=== PATIENT | male | born 1945 | race Caucasian/White ===

== ENCOUNTER 2018-01-04 21:43 | Emergency (ER) | payer MEDICARE, OTHER ==
[2018-01-04] MEDS ORDERED: DIPH/PERTUSS(ACELL)/TETANUS VAC/PF 0.5 ML SYR (>=10YO) IM ONE (22:51)
--- NOTE | 2018-01-05 00:27 | ER Document Report ---
ED General - General Chief Complaint: Head Injury with LOC Stated Complaint: FALL,HEAD LACERATION Time Seen by Provider: 01/04/18 22:51 Notes: Patient is a 72-year-old male with a past medical history of prostate cancer status post radiation therapy, recurrent episodes of syncope, hypertension, chronic alcoholism, and chronic tobacco abuse who presents after an episode of syncope and head trauma. Patient reports that he was sitting on the couch, drinking vodka which is his normal beverage of choice when he became lightheaded and apparently passed out striking his head on the ground. His states that she heard a thump in the living room, then her the patient immediately calling that he needed help. When she got him he was awake, alert, oriented, states he did not recall what happened or how it fallen. She does note that he has a history of recurrent "blackouts" ever since starting radiation therapy and multiple new medications for his prostate cancer. He has been evaluated on multiple prior occasions by his communications media professor and others without a definitive etiology of why he continues to do so. At time of my assessment the patient notes a dull, constant, throbbing aching pain to his right forehead where there is a 2 cm laceration. Nothing improves or worsens that pain. His tetanus is up-to-date. He denies any additional injuries. He is requesting laceration repair and discharge. TRAVEL OUTSIDE OF THE [place] IN LAST 30 DAYS: No - Related Data Allergies/Adverse Reactions: No Known Allergies Allergy (Unverified 02/02/13 02:41) Past Medical History - General Information source: Patient, Parent - Social History Smoking Status: Current Every Day Smoker Frequency of alcohol use: Heavy Drug Abuse: None Lives with: Spouse/Significant other Family History: Reviewed & Not Pertinent - Past Medical History Cardiac Medical History: Reports: Hx Coronary Artery Disease, Hx Hypertension - AMLODIPINE, TEKTURNA, CLONIDINE Denies: Hx Heart Attack Pulmonary Medical History: Reports: Hx Pneumonia - in the Denies: Hx Asthma Neurological Medical History: Denies: Hx Cerebrovascular Accident, Hx Seizures GI Medical History: Denies: Hx Hepatitis, Hx Hiatal Hernia, Hx Ulcer Traumatic Medical History: Reports: Hx Fractures - hip Infectious Medical History: Denies: Hx Hepatitis Past Surgical History: Reports: Hx Orthopedic Surgery. Denies: Hx Open Heart Surgery, Hx Pacemaker - Immunizations Hx Diphtheria, Pertussis, Tetanus Vaccination: Yes Hx Pneumococcal Vaccination: 02/02/13 Review of Systems - Review of Systems Notes: Constitutional: Negative for fever. Eyes: Negative for visual changes. ENT: Negative for facial injury Cardiovascular: Negative for chest injury. Respiratory: Negative for shortness of breath. Gastrointestinal: Negative for abdominal injury. Genitourinary: Negative for genital injury Musculoskeletal: Negative for back injury. Skin: Positive for laceration/abrasions. Neurological: Positive for head injury. Physical Exam - Vital signs Vitals: Temp Pulse Resp BP Pulse Ox 97.5 F 60 18 114/62 99 01/04/18 21:50 01/04/18 21:50 01/04/18 21:50 01/04/18 21:50 01/04/18 21:50 Interpretation: Normal Notes: PHYSICAL EXAMINATION: GENERAL: Well-appearing, no acute distress. HEAD: Atraumatic, normocephalic. EYES: Pupils equal round and reactive to light, extraocular movements intact, sclera anicteric, conjunctiva are normal. ENT: nares patent, no oral pharyngeal trauma. No hemotympanum, no Joy's sign , no raccoon eyes. NECK: No midline cervical spine tenderness. Patient able to move their head to 45 bilaterally without any discomfort. LUNGS: Breath sounds clear to auscultation bilaterally and equal. No wheezes rales or rhonchi. HEART: Regular rate and rhythm without murmurs. CHEST WALL: No ecchymosis over the chest wall. ABDOMEN: Soft, nontender, normoactive bowel sounds. No guarding, no rebound. No abdominal bruising EXTREMITIES: Normal range of motion, no pitting or edema. No long bone deformities. BACK: No midline spinal tenderness, step-offs, or deformities. NEUROLOGICAL: Face symmetric. Tongue protrudes midline. Extraocular motions intact. Pupils are 2 mm and equally reactive. Normal speech, normal gait. 5 out of 5 strength in both the distal and proximal upper and lower extremities bilaterally. Sensation is grossly intact throughout. Finger to nose testing normal. Pronator drift normal. PSYCH: Normal mood, normal affect. SKIN: Warm, Dry, normal turgor, 2 cm laceration above the right eyebrow Course - Re-evaluation Re-evalutation: 01/05/18 00:24 Patient presents with a syncopal episode in which he struck his forehead sustaining a 2 cm laceration above his right medial eyebrow. Patient's tetanus shot is really up-to-date. At time of assessment he has no focal neurologic deficits, no vomiting no confusion, does not take any form of anticoagulation. He denies any headache or neck pain. He denies any injury to any other location. His EKG is unremarkable. I have recommended that we proceed with lab work including cardiac markers, IV placement for IV fluids as patient is clinically dehydrated as well as CT of the head and cervical spine as he is unable to clinically cleared by standard criteria due to his age. However, patient declines these interventions stating the only thing he wants to have his laceration repaired and they would like to go home. He states that he has had multiple similar episodes where he passes out like this, they have been evaluated by his communications media professor, and he has not had any known cause of them. He states that he does not want any further evaluation beyond what has already been completed. He verbalizes and understands that we could be missing a life- threatening diagnosis such as a dysrhythmia, ACS, intracranial bleed, or a critical cervical spine injury. He understands that the images and labs would help to clarify the possibility of these diagnoses. He understands that should I missed 1 of these diagnoses due to lack of workup, he could have permanent disability, paralysis, or even . Although patient is a chronic alcoholic, he is not clinically intoxicated. His at the bedside is present for the entirety of this conversation and agrees. His laceration has been repaired with Dermabond without difficulty. At this time will discharge with return precautions and follow-up recommendations. Verbal discharge instructions given a the bedside and opportunity for questions given. Medication warnings reviewed. Patient is in agreement with this plan and has verbalized understanding of return precautions and the need for primary care follow-up in the next 24-72 hours. - Vital Signs Vital signs: Temp Pulse Resp BP Pulse Ox 97.4 F 64 16 118/65 100 01/05/18 00:43 01/05/18 00:43 01/05/18 00:43 01/05/18 00:43 01/05/18 00:43 - EKG Interpretation by Me Additional EKG results interpreted by me: 01/05/18 01:05 Sinus bradycardia. Rate 58. No ST elevations or depressions. Intermittent PVCs. QTC is 448. Procedures - Laceration/Wound Repair Right Face Wound length (cm): 2 Wound's Depth, Shape: Superficial, Contused tissue Laceration pre-procedure: Sterile PPE donned Wound explored: Clean Irrigated w/ Saline (mLs): 300 Wound Debrided: Minimal Wound Repaired With: Dermabond Discharge - Discharge Clinical Impression: Syncope Qualifiers: Syncope type: unspecified Qualified Code(s): R55 - Syncope and collapse Forehead laceration Qualifiers: Encounter type: initial encounter Qualified Code(s): S01.81XA - Laceration without foreign body of other part of head, initial encounter Head trauma Qualifiers: Encounter type: initial encounter Qualified Code(s): S09.90XA - Unspecified injury of head, initial encounter Condition: Good Disposition: HOME, SELF-CARE Additional Instructions: The wound has been closed with glue. Please do not pick at the at the wound. Do not cover it with any kind of antibiotic ointment as this can cause the glue to loosen. Return immediately if you develop spreading redness around the wound , pus from the wound, worsening pain, or a fever of >100.4. Keep the area clean and dry. You were seen today after an episode of passing out. Your EKG here is normal. You have declined further laboratories to help clarify the cause of your syncope. Please drink plenty of fluids over the next several days. Return to emergency department if you have any further episodes of syncope, headache, weakness, numbness, chest pain, or shortness of breath. Please follow up closely with your primary care physician.
[2018-01-05 00:48] VITALS: BP 118/65
--- NOTE | 2018-01-05 07:52 | EKG REPORT ---
SEVERITY:- ABNORMAL ECG - SINUS RHYTHM MULTIPLE VENTRICULAR PREMATURE COMPLEXES : Confirmed by: Shree Tejada MD 05-Jan-2018 07:51:16
== END 2018-01-05 00:55 | disposition home or self-care (01) ==
LOC: ER 21:43
DX: R55 Syncope and collapse (principal); S01.01XA Laceration without foreign body of scalp, initial encounter; W08.XXXA Fall from other furniture, initial encounter; Y93.89 Activity, other specified; Y92.008 Other place in unspecified non-institutional (private) residence as the place of occurrence of the external cause; E86.0 Dehydration; I10 Essential (primary) hypertension; I25.10 Atherosclerotic heart disease of native coronary artery without angina pectoris; F17.200 Nicotine dependence, unspecified, uncomplicated; F10.20 Alcohol dependence, uncomplicated; Z85.46 Personal history of malignant neoplasm of prostate; Z92.3 Personal history of irradiation
CPT/HCPCS: 93005; 93010; 99284

== ENCOUNTER 2019-03-16 01:11 | Emergency (ER) | payer MEDICARE, OTHER ==
--- NOTE | 2019-03-16 01:26 | ER Document Report ---
ED Fall - General Stated Complaint: ARM PAIN Time Seen by Provider: 03/16/19 01:17 Primary Care Provider: MAYITO MESA MD [ACTIVE STAFF] - Follow up in 3-5 days Notes: Patient is a 73-year-old male that comes by EMS from home for chief complaint of fall on the left shoulder. He states that he lost his balance and tripped on the last step, landed on the ground, landed on his left shoulder/arm area with his arm tucked in close to his body. He denies shortness of breath, rib pain, head injury, neck pain, back pain, loss of consciousness, vomiting, or any other complaints. He also denies hip pain. He is not on a blood thinner but he was drinking alcohol tonight. TRAVEL OUTSIDE OF THE [place] IN LAST 30 DAYS: No - Related data Allergies/Adverse Reactions: No Known Allergies Allergy (Unverified 02/02/13 02:41) Past Medical History - General Information source: Patient - Social History Smoking Status: Current Every Day Smoker Smoking Education Provided: Yes - <3 min Frequency of alcohol use: Heavy Drug Abuse: None Lives with: Family Family History: Reviewed & Not Pertinent - Past Medical History Cardiac Medical History: Reports: Hx Coronary Artery Disease, Hx Hypertension - AMLODIPINE, TEKTURNA, CLONIDINE Denies: Hx Heart Attack Pulmonary Medical History: Reports: Hx Pneumonia - in the Denies: Hx Asthma Neurological Medical History: Denies: Hx Cerebrovascular Accident, Hx Seizures Renal/ Medical History: Denies: Hx Peritoneal Dialysis GI Medical History: Denies: Hx Hepatitis, Hx Hiatal Hernia, Hx Ulcer Traumatic Medical History: Reports: Hx Fractures - hip Infectious Medical History: Denies: Hx Hepatitis Past Surgical History: Reports: Hx Orthopedic Surgery. Denies: Hx Open Heart Surgery, Hx Pacemaker - Immunizations Hx Diphtheria, Pertussis, Tetanus Vaccination: Yes Hx Pneumococcal Vaccination: 02/02/13 Review of Systems - Review of Systems Constitutional: No symptoms reported EENT: No symptoms reported Cardiovascular: No symptoms reported Respiratory: No symptoms reported Gastrointestinal: No symptoms reported Genitourinary: No symptoms reported Male Genitourinary: No symptoms reported Musculoskeletal: See HPI Skin: No symptoms reported Hematologic/Lymphatic: No symptoms reported Neurological/Psychological: No symptoms reported Physical Exam - Vital signs Vitals: Temp Pulse Resp BP Pulse Ox 97.5 F 57 L 16 127/56 H 94 03/16/19 01:25 03/16/19 01:25 03/16/19 01:25 03/16/19 01:25 03/16/19 01:25 - Notes Notes: GENERAL: Alert, interacts well. No acute distress. HEAD: Normocephalic, atraumatic. EYES: Pupils equal, round, and reactive to light. Extraocular movements intact. ENT: Oral mucosa moist, tongue midline. Oropharynx unremarkable. Airway patent. Nares patent, no nasal septal hematoma, TM's intact. NECK: Full range of motion. Supple. Trachea midline. LUNGS: Clear to auscultation bilaterally, no wheezes, rales, or rhonchi. No respiratory distress. HEART: Regular rate and rhythm. No murmur ABDOMEN: Soft, non-tender. Non-distended. Bowel sounds present in all 4 quadrants. GENITOURINARY: Deferred EXTREMITIES: Patient cradling left arm close to his body. Elbow, forearm, wrist, hand exam unremarkable, normal strength, normal distal neurovascular exam. Patient is very tender towards the proximal humerus and humeral head, does not appear to be dislocated, too painful to move with any significant range of motion. Clavicle unremarkable, extremity exam is otherwise unremarkable. BACK: no cervical, thoracic, lumbar midline tenderness. No saddle anesthesia, normal distal neurovascular exam. NEUROLOGICAL: Alert and oriented x3. Normal speech. GCS of 15. Cranial nerves II through XII grossly intact. PSYCH: Normal affect, normal mood. SKIN: Warm, dry, normal turgor. No rashes or lesions noted. Course - Re-evaluation Re-evalutation: Patient reportedly was drinking alcohol, at bedside now, states he drinks chronically, patient is clinically sober, does not slur his words, is alert, oriented, gives excellent details and is cooperative. He does not have any signs of trauma to his head, neck, back, chest, however he does have a very tender left humerus area. There does not appear to be any other injury. Patient emphatically denies head injury. As result no CAT scan of the head or neck was performed. X-ray does confirm left humeral fracture with impaction of the head of the humerus. Patient has normal distal neurovascular exam. No other signs of trauma. I discussed with and patient details. Patient will follow-up with orthopedics, he will be placed in a sling, he will be provided with pain medicine, discussed the dangers of combining narcotics with alcohol as this could be lethal, they state understanding of precautions and plan. Discussed return precautions. Discussed with Dr. Oliver. Patient states understanding and agreement with plan. - Vital Signs Vital signs: Temp Pulse Resp BP Pulse Ox 97.3 F 65 16 121/67 96 03/16/19 03:00 03/16/19 03:00 03/16/19 01:25 03/16/19 03:00 03/16/19 03:00 Procedures - Immobilization Left arm Pre-Proc Neuro Vasc Exam: Normal Immobilizer type: Sling Performed by: PCT Post-Proc Neuro Vasc Exam: Normal Alignment checked and good: Yes Discharge - Discharge Clinical Impression: Fall Qualifiers: Encounter type: initial encounter Qualified Code(s): W19.XXXA - Unspecified fall, initial encounter Fracture of humeral head, left, closed Qualifiers: Encounter type: initial encounter Qualified Code(s): S42.292A - Other displaced fracture of upper end of left humerus, initial encounter for closed fracture Condition: Stable Disposition: HOME, SELF-CARE Additional Instructions: You have a fracture of the head of the humerus (the bone where your arm attaches to your shoulder joint). Wear the sling, take the pain medication if needed, I recommend the Colace stool softener while taking the pain medication to avoid constipation. Call tomorrow to set up your appointment with orthopedics for close follow-up and additional management. Return if you worsen including severe swelling, severe worsening pain, numbness, or any other concerning symptoms. Prescriptions: Docusate Sodium [Colace 100 mg Capsule] 100 mg PO ASDIR PRN #30 capsule PRN Reason: Oxycodone HCl/Acetaminophen [Percocet 5-325 mg Tablet] 1 - 2 tab PO Q4H PRN #15 tablet PRN Reason: Referrals: MAYITO MESA MD [ACTIVE STAFF] - Follow up in 3-5 days
[2019-03-16] MEDS ORDERED: OXYCODONE-ACETAMINOPHEN 5-325 MG TABLET PO ONE (01:37)
[2019-03-16] MEDS ORDERED: ONDANSETRON 4 MG TAB.RAPDIS PO ONE (01:37)
--- NOTE | 2019-03-16 02:14 | RADIOLOGY REPORT (SQ) ---
EXAM DESCRIPTION: XR LEFT SHOULDER 2 OR MORE VIEWS COMPLETED DATE/TME: 03/16/2019 01:24 CLINICAL HISTORY: 73 years, Male, fall; landed on shoulder; humerus pain COMPARISON: None. NUMBER OF VIEWS: TECHNIQUE: LIMITATIONS: None. FINDINGS: There is an impacted fracture of the humeral neck. This may be an old fracture, however, acute fracture superimposed on old fracture cannot be excluded. Mineralization of bone appears normal. IMPRESSION: Impacted fracture of the humeral neck of uncertain age. CT of the left shoulder would be helpful for further evaluation, if clinically warranted. copyright 2010 [employer]- All Rights Reserved
[2019-03-16] MEDS ORDERED: HYDROCODONE/ACETAMINOPHEN 5-325 MG (6 TAB/ER DISP) PO PRN (02:35)
[2019-03-16] MEDS ORDERED: ONDANSETRON ODT 4 MG TAB (6 TAB/ER DISP) PO PRN (02:36)
[2019-03-16 04:20] VITALS: BP 121/67
== END 2019-03-16 03:05 | disposition home or self-care (01) ==
LOC: ER 01:11
DX: S42.292A Other displaced fracture of upper end of left humerus, initial encounter for closed fracture (principal); W10.8XXA Fall (on) (from) other stairs and steps, initial encounter; F17.200 Nicotine dependence, unspecified, uncomplicated
CPT/HCPCS: 99283; 73030; A9270 ×4; S0119

== ENCOUNTER 2019-03-24 12:57 | Day surgery (SDC) | payer MEDICARE, OTHER ==
[~2019-03-24 12:57] MED LIST: BUPIVACAINE HCL 0.5 % INJ/PF 30 ML SDV ONE; CEFAZOLIN 2 GM/D5W RTU 2 GM/50 ML RTUPB IV PRN; DEXAMETHASONE SOD PHOSPHATE INJ 4 MG/1 ML VIAL ONE; GLYCOPYRROLATE 1 MG/5 ML SYRINGE ONE; KETOROLAC TROMETHAMINE 60 MG/2 ML SDV ONE; LIDOCAINE 2% INJ-PF (20 MG/ML) 2 ML AMPUL ONE; ONDANSETRON HCL INJ/PF 4 MG/2 ML SDV ONE; SUCCINYLCHOLINE CHLORIDE INJ 200 MG/10 ML VIAL ONE
--- NOTE | 2019-03-24 13:59 | RADIOLOGY REPORT (SQ) ---
EXAM DESCRIPTION: CHEST SINGLE VIEW COMPLETED DATE/TIME: 03/24/2019 1:48 pm REASON FOR STUDY: pre-op evaluation Z79.899 OTHER SKILLED NURSING (CURRENT) DRUG THERAPY COMPARISON: 02/02/2013 NUMBER OF VIEWS: One view. TECHNIQUE: Single frontal radiographic image of the chest acquired. LIMITATIONS: None. FINDINGS: LUNGS AND PLEURA: Lung wesley stable in appearance with residual airspace disease in the l eft midlung field most likely scar. There is hyperexpansion. MEDIASTINUM AND HILAR STRUCTURES: Stable in appearance. HEART AND VASCULAR STRUCTURES: Normal in size. No failure. BONES: No acute findings. OTHER: No other significant finding. IMPRESSION: Stable chest. No acute findings. Scarring in the left midlung field. TECHNICAL DOCUMENTATION: JOB ID: [id number] [employer]- All Rights Reserved Reading location - IP/workstation name: [email or web address]
[2019-03-24 14:25] LABS: HEMATOCRIT 33.7 % (37.9-51.0); HEMOGLOBIN 11.7 g/dL (13.5-17.0); MEAN CORPUSCULAR HEMOGLOBIN 35.4 pg (27.0-33.4); MEAN CORPUSCULAR HGB CONC 34.7 g/dL (32.0-36.0); MEAN CORPUSCULAR VOLUME 102 fl (80-97); PLATELET COUNT 366 10^3/uL (150-450); RED CELL DISTRIBUTION WIDTH 14.2 % (11.5-14.0); WHITE BLOOD COUNT 7.6 10^3/uL (4.0-10.5)
[2019-03-24 14:27] LABS: APPEARANCE,URINE CLEAR; BILIRUBIN,URINE NEGATIVE (NEGATIVE); COLOR,URINE YELLOW; GLUCOSE, URINE NEGATIVE (NEGATIVE); KETONES,URINE NEGATIVE (NEGATIVE); LEUKOCYTE ESTERASE,URINE NEGATIVE (NEGATIVE); NITRITE,URINE NEGATIVE (NEGATIVE); PROTEIN,URINE NEGATIVE (NEGATIVE); URINE SPECIFIC GRAVITY 1.017; UROBILINOGEN,URINE NEGATIVE mg/dL (<2.0)
[2019-03-24] MEDS ORDERED: ALBUTEROL SULFATE 0.083% NEB 2.5 MG/3 ML AMPUL NEB ONE (14:32)
[2019-03-24 14:33] LABS: INTERNATIONAL RATION (INR) 0.91; PROTHROMBIN TIME 12.7 SEC (11.4-15.4)
[2019-03-24 14:34] LABS: PARTIAL THROMBOPLASTIN TIME 23.9 SEC (23.5-35.8)
[2019-03-24 14:49] LABS: ALANINE AMINOTRANSFERASE 35 U/L (21-72); ALBUMIN 3.6 g/dL (3.5-5.0); ALKALINE PHOSPHATASE 77 U/L (38-126); ANION GAP 7 (5-19); ASPARTATE AMINO TRANSFERASE 26 U/L (17-59); BILIRUBIN,DIRECT 0.3 mg/dL (0.0-0.4); BILIRUBIN,TOTAL 0.8 mg/dL (0.2-1.3); BLOOD UREA NITROGEN 27 mg/dL (7-20); CALCIUM 9.9 mg/dL (8.4-10.2); CARBON DIOXIDE 28 mmol/L (22-30); CHLORIDE 102 mmol/L (98-107); GLUCOSE 106 mg/dL (75-110); POTASSIUM 5.3 mmol/L (3.6-5.0); SODIUM 137.1 mmol/L (137-145); TOTAL PROTEIN 6.4 g/dL (6.3-8.2)
[2019-03-24] MEDS ORDERED: MIDAZOLAM 2 MG/2 ML INJ ONE (14:53)
[2019-03-24] MEDS ORDERED: DEXMEDETOMIDINE INJ 80 MCG/20 ML VIAL IV ONE (14:53)
[2019-03-24] MEDS ORDERED: FENTANYL CITRATE INJ/PF 250 MCG/5 ML AMPULE ONE (14:53)
[2019-03-24] MEDS ORDERED: EPHEDRINE SULFATE INJ 50 MG/1 ML AMPULE ONE (14:53)
[2019-03-24] MEDS ORDERED: ACETAMINOPHEN 1,000 MG/100 ML RTUPB IV ONE (14:54)
[2019-03-24] MEDS ORDERED: PROPOFOL INJ 200 MG/20 ML VIAL IV ONE (14:54)
[2019-03-24 15:09] LABS: ERYTHROCYTE SEDIMENTATION RATE 67 mm/hr (0-20)
[2019-03-24] MEDS ORDERED: DIPHENHYDRAMINE HCL 50 MG/ML VIAL IV PRN (17:11)
[2019-03-24] MEDS ORDERED: PROMETHAZINE HCL INJ 25 MG/1 ML VIAL IV PRN ×2 (17:11)
[2019-03-24] MEDS ORDERED: MORPHINE SULFATE 10 MG/ML INJ IV PRN ×2 (17:11→18:54)
[2019-03-24] MEDS ORDERED: FENTANYL CITRATE INJ/PF 100 MCG/2 ML AMPUL IV PRN ×3 (17:11)
[2019-03-24] MEDS ORDERED: MEPERIDINE HCL/PF INJ 25 MG/1 ML DISP.SYRIN IV PRN (17:11)
[2019-03-24] MEDS ORDERED: ONDANSETRON HCL INJ/PF 4 MG/2 ML SDV IV PRN (17:11)
[2019-03-24] MEDS ORDERED: ONDANSETRON HCL INJ/PF 4 MG/2 ML SDV ONE (18:54)
[2019-03-24] MEDS ORDERED: HYDROCODONE/ACETAMINOPHEN 5-325 MG TABLET PO PRN (18:54)
--- NOTE | 2019-03-24 18:54 | Discharge Summary ---
Discharge Summary (SDC) - Discharge Final Diagnosis: Left proximal humerus fracture now she is good to Date of Surgery: 03/24/19 Discharge Date: 03/24/19 Condition: Good Treatment or Instructions: Schedule Follow Up w/ Dr. Kulwant Berry @ [facility] for Surgery to be seen in 10-14 days or as scheduled [place]: [place]: [place]: May remove dressing on postop day #3, keep incision covered and dry. Cryocuff to shoulder May begin wrist and elbow range of motion 4x per day or as tolerated. Keep splint intact. May remove sling for hygiene purposes otherwise continue it at all times. Stool softener of choice when on pain medication. Prescriptions: Hydrocodone/Acetaminophen [[place] 7.5-325 mg Tablet] 1 tab PO Q6 PRN #25 tablet PRN Reason: Discharge Diet: As Tolerated Respiratory Treatments at Home: Deep Breathing/Coughing, Incentive Spirometer Discharge Activity: No Lifting Over 10 Pounds, No Lifting/Push/Pulling Report the Following to Your Physician Immediately: Fever over 101 Degrees, Unusual Bleeding, Redness, Swelling, Warmth
--- NOTE | 2019-03-24 18:54 | Operative Report ---
Operative Report DATE OF SURGERY: 03/24/19 PREOPERATIVE DIAGNOSIS: Left proximal humerus fracture. Left ring finger proxi mal phalanx fracture POSTOPERATIVE DIAGNOSIS: Same OPERATION: Open reduction to fixation with placement of intramedullary nail left proximal humerus fracture. Closed reduction with splinting left ring finger proximal phalanx fracture SURGEON: MUNIRA KUHN ANESTHESIA: GA COMPLICATIONS: None ESTIMATED BLOOD LOSS: 150cc PROCEDURE: Indication for above procedure: 73-year-old male who sustained a fall onto his left upper extremity. Patient was brought to emergency room where x-rays demonstrated proximal humerus fracture with concomitant ring finger proximal phalanx fracture at that point decision was made to proceed with nonoperative treatment however upon follow-up repeat radiographs demonstrate worsening alignment. Thus once again discussed operative versus nonoperative intervention patient was deemed medically cleared from primary care physician and negative restorer and thus decision was made to proceed with operative treatment. Procedure In Detail: Patient was seen and evaluated in the preoperative holding area. The LEFT upper extremity was initialized and marked. Patient received 2g of Ancef IV for bacterial prophylaxis. Patient was taken back to the operative room where transferred to the operative table and placed under general anesthesia. Once they were adequately anesthetized patient placed in the beachchair position. Cervical spine was placed in neutral position all bony prominences were padded including nonoperative upper extremity and bilateral lower extremity. A surgical team debriefing was performed ensuring all instrumentation was available, the surgical procedure was discussed with possible concerns reviewed. The upper extremity was prepped with ChloraPrep draped in a sterile fashion. A timeout was done identifying correct patient, procedure and extremity everyone in attendance agree with this and verbalized no concerns. Longitudinal skin incision was made laterally just proximal to the acromion and extended just short of 5 cm to avoid the axillary nerve. Blunt dissection was performed and the deltoid was split underlying subacromial bursitis was identified and bursectomy was performed to expose the rotator cuff. Under C-arm fluoroscopy the starting point for the Brit proximal humeral nail was determined and a small 7 mm rolly was made within the rotator cuff centered midline between anterior and posterior and just lateral to the transition between the tuberosity and articular surface. This was then extended distally and the opening reamer was utilized. Guidewire was then placed through the proximal humerus and the distal fragment was manipulated until the guidewire was passed safely into the shaft. C-arm fluoroscopy was then obtained an additional K wire was placed into the humeral head to act as a joystick and reduce the fracture in a near anatomic position. Once this was determined the proximal humeral Brit nail was placed while maintaining acceptable reduction of the 2 part fracture. Once passed to the appropriate level K wire was placed to the top of the nail to ensure adequate placement. The lateral to medial screw was then placed and drilled to but not through the articular surface. A second screw was then placed with a washer. Through the aiming arm trocar was then advanced to the skin distally skin incision was made and blunt dissection was performed down to the humeral shaft and trocar advanced. The near 4 cortices were drilled and the appropriate sized screw was placed to the static hole. C arm fluoroscopy was then obtained which confirmed acceptable reduction of the proximal humerus on AP and lateral projection. Additional fixation was then obtained proximally with an additional 2 screws drilling to but not through the far articular surface and washers were also placed to provide further fixation. The distal aspect of the nail was then secured with a bicortical screw through the dynamic hole. Final C-arm fluoroscopy was then obtained which demonstrated sabianism of alignment with live fluoroscopy there is no evidence of screw penetration into the articular surface. Wound was copiously irrigated with normal saline. Defect within the rotator cuff was closed with #2 FiberWire suture. Deltoid fascia was closed with interrupted 0 Vicryl suture. Subcutaneous tissues were closed with 2-0 Vicryl suture. Skin was closed with jorge a. 30 cc of 0.5% bupivacaine without epinephrine was injected for postoperative pain control. Acticoat and OpSite placed. The ring finger proximal phalanx was then closed reduced under fluoroscopy restoring radial/ulnar alignment and volar/dorsal alignment. No evidence of shortening or angulation. No evidence of malrotation after reduction completed. Patient was then placed in the ulnar gutter splint in the intrinsic plus position once splint set final C-arm was obtained demonstrating no evidence of displacement acceptable alignment of the ring finger proximal phalanx extra- articular fracture. Sponge counts, instrument counts, needle counts were correct. Patient was then awoken from anesthesia. Transferred from the operating room table to the operating room stretcher. There was no intraoperative complications patient tolerated procedure well stable to PACU. Postop plan: Patient followed the office in 2 weeks we will obtain radiographs of the left hand and left shoulder. In the meantime patient will begin elbow range of motion. We will continue sling at all times excluding hygiene purposes.
[2019-03-24] MEDS: FENTANYL CITRATE INJ/PF 100 MCG/2 ML AMPUL ONE ×2 (19:07→19:12)
[2019-03-24] MEDS ORDERED: LIDOCAINE 2% INJ (20 MG/ML) 20 ML MDV ONE (19:44)
[2019-03-24] MEDS ORDERED: ROPIVACAINE HCL 0.5% INJ/PF (5 MG/1 ML) 30 ML SDV ONE (19:45)
[2019-03-24] MEDS ORDERED: LIDOCAINE 1%/EPINEPHRINE INJ 20 ML VIAL ONE (19:45)
[2019-03-24 22:13] VITALS: BP 117/69
--- NOTE | 2019-03-25 08:45 | RADIOLOGY REPORT (SQ) ---
EXAM DESCRIPTION: FINGER LEFT COMPLETED DATE/TIME: 03/24/2019 7:18 pm REASON FOR STUDY: CLOSED REDUCTION Z79.899 OTHER HALFWAY (CURRENT) DRUG THERAPY Z79.01 HALFWAY (CURRENT) USE OF ANTICOAGULANTS COMPARISON: None. FLUOROSCOPY TIME: 0.2 minutes Spot images saved to PACS. TECHNIQUE: Intra-operative images acquired during surgical procedure to evaluate progress. NUMBER OF IMAGES: 4 LIMITATIONS: None. FINDINGS: Fluoroscopy was provided for intraoperative procedure. Please refer to the operative repo rt for further discussion. IMPRESSION: IMAGE(S) OBTAINED DURING PROCEDURE. COMMENT: Quality ID [id number]: Final reports for procedures using fluoroscopy that document radiation exp osure indices, or exposure time and number of fluorographic images (if radiation exposure indices are not available) Please consult full operative report of the attending physician for description of the procedure. TECHNICAL DOCUMENTATION: JOB ID: [id number] [employer]- All Rights Reserved Reading location - IP/workstation name: [email or web address]
--- NOTE | 2019-03-25 08:46 | RADIOLOGY REPORT (SQ) ---
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 IMPRESSION: Please see combined report for performance of procedure and radiologic supervision and i nterpretation. Reading location - IP/workstation name: [email or web address]
--- NOTE | 2019-03-25 08:46 | RADIOLOGY REPORT (SQ) ---
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 IMPRESSION: Please see combined report for performance of procedure and radiologic supervision and i nterpretation. Reading location - IP/workstation name: [email or web address]
--- NOTE | 2019-03-25 08:46 | RADIOLOGY REPORT (SQ) ---
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 FLUOROSCOPY TIME: 2.2 minutes Spot images saved to PACS. TECHNIQUE: Intra-operative images acquired during surgical procedure to evaluate progress. NUMBER OF IMAGES: 9 LIMITATIONS: None. FINDINGS: Fluoroscopy was provided for intraoperative procedure. Please refer to the operative repo rt for further discussion. IMPRESSION: IMAGE(S) OBTAINED DURING PROCEDURE. COMMENT: Quality ID [id number]: Final reports for procedures using fluoroscopy that document radiation exp osure indices, or exposure time and number of fluorographic images (if radiation exposure indices are not available) Please consult full operative report of the attending physician for description of the procedure. TECHNICAL DOCUMENTATION: JOB ID: [id number] [employer]- All Rights Reserved Reading location - IP/workstation name: [email or web address]
--- NOTE | 2019-03-25 10:36 | EKG REPORT ---
SEVERITY:- ABNORMAL ECG - PACEMAKER SPIKES OR ARTIFACTS SINUS RHYTHM : Confirmed by: Doe Rodgers 25-Mar-2019 10:35:52
== END 2019-03-24 22:10 | disposition home or self-care (01) ==
LOC: OROUT 12:57
PROVIDERS: ATTEND Orthopaedic Surgery
DX: S42.292A Other displaced fracture of upper end of left humerus, initial encounter for closed fracture (principal); S62.615A Displaced fracture of proximal phalanx of left ring finger, initial encounter for closed fracture; S62.515A Nondisplaced fracture of proximal phalanx of left thumb, initial encounter for closed fracture; W10.9XXA Fall (on) (from) unspecified stairs and steps, initial encounter; I25.9 Chronic ischemic heart disease, unspecified; I10 Essential (primary) hypertension; F17.210 Nicotine dependence, cigarettes, uncomplicated; Z79.899 Other long term (current) drug therapy; Z79.01 Long term (current) use of anticoagulants; Z85.46 Personal history of malignant neoplasm of prostate
CPT/HCPCS: 23615; 26725; 36415; 85027; 85652; 85610; 85730; 80053; 81001; 71045; 73140; 73060; 93005; 93010; 94640; C1713 ×6; J2795; J2250; J3490 ×6; J1100; J1885; J3010 ×2; J0330; J2405; J2704; A9270; J0131; 01744

== ENCOUNTER 2020-07-14 11:13 | Day surgery (SDC) | payer MEDICARE, OTHER ==
[~2020-07-14 11:13] MED LIST changes: -BUPIVACAINE HCL 0.5 % INJ/PF 30 ML SDV ONE; -CEFAZOLIN 2 GM/D5W RTU 2 GM/50 ML RTUPB IV PRN; +CHONDR SU A NA/HYALUR INTRAOC KIT (SURGICARE) ONE; -DEXAMETHASONE SOD PHOSPHATE INJ 4 MG/1 ML VIAL ONE; +EPINEPHRINE INJ/PF 1 MG/1 ML AMPULE ONE; -GLYCOPYRROLATE 1 MG/5 ML SYRINGE ONE; +KETOROLAC TROMETHAMINE 0.45% 4 DROP/0.4 ML DROPERETTE OD PRN; -KETOROLAC TROMETHAMINE 60 MG/2 ML SDV ONE; +LIDOCAINE 1%/PHENYLEPHRINE 1.5% 0.8 ML SYRINGE ONE; -LIDOCAINE 2% INJ-PF (20 MG/ML) 2 ML AMPUL ONE; -ONDANSETRON HCL INJ/PF 4 MG/2 ML SDV ONE; -SUCCINYLCHOLINE CHLORIDE INJ 200 MG/10 ML VIAL ONE
[2020-07-14] MEDS ORDERED: MIDAZOLAM 2 MG/2 ML INJ ONE ×2 (11:38→14:07)
[2020-07-14] MEDS ORDERED: ONDANSETRON HCL INJ/PF 4 MG/2 ML SDV ONE (11:38)
[2020-07-14] MEDS ORDERED: FENTANYL CITRATE INJ/PF 100 MCG/2 ML AMPUL ONE ×2 (11:39→14:07)
[2020-07-14] MEDS: TETRACAINE HCL 0.5% OPH SOLN 4 ML OD PRN ×4 (12:08→13:39)
[2020-07-14] MEDS: TROPICAMIDE 1% OPH SOLN 15 ML OD PRN ×3 (12:08→12:28)
[2020-07-14] MEDS: CYCLOPENTOLATE 0.2%/PHENYLEPHRINE 1% OPH SOLN 2 ML OD PRN ×3 (12:08→12:28)
[2020-07-14] MEDS: BESIFLOXACIN HCL 0.6% OPH SUSP 5 ML BOTTLE OD PRN ×4 (12:08→13:47)
[2020-07-14] MEDS: DORZOLAMIDE HCL 2%/TIMOLOL MALEAT 0.5% OPH SOLN 10 ML OD PRN ×2 (12:52→13:47)
[2020-07-14] MEDS: PREDNISOLONE ACETATE 1% OPH SUSP 5 ML OD PRN ×2 (12:52→13:47)
[2020-07-14] MEDS ORDERED: CHONDR SU A NA/HYALUR SOD 0.5 ML DISP.SYRIN ONE (12:57)
[2020-07-14] MEDS ORDERED: LIDOCAINE 1%/PHENYLEPHRINE 1.5% 0.8 ML SYRINGE ONE (13:06)
[2020-07-14] MEDS ORDERED: HYALURONATE SODIUM SYRINGE 0.55 ML ONE (13:49)
--- NOTE | 2020-07-14 21:38 | Operative Report ---
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 Schroeder is a 74 year old male] Who presents to our clinic complaining of difficulty seeing, to read and drive due to blurry vision in both eyes. On examination, she was found to have best corrected visual acuity of [20/50-2] in the right eye. Ophthalmoscopy revealed a [+3] nuclear, [+3] corneal degeneration, [+1] posterior subcapsular cataract in the right eye with normal appearing cornea, vitreous, retina and optic nerve. I discussed the findings of the exam with the patient. We discussed the risks, benefits and alternatives of cataract extraction and intraocular lens implant in the right eye as a means of improving her vision. Risks that were discussed with the p atient include infection, bleeding, retinal detachment and possible need for additional surgery. The patient understands that she may need to wear glasses after surgery. After discussion, the patient indicated her interest in having this procedure performed by signing an informed witness consent form. REPORT OF PROCEDURE: On the day of surgery, the patient was given a topical application to the right eye to consist of drop of Tetracaine 0.5%, tropicamide 1%, Cyclomidril, Besivance 0.6% and Acular 0.45%. The patient was then taken to the operating room in a supine position in a standard eye bed. Intravenous sedation was administered and she was prepped and draped in the standard fashion. A timeout was performed to confirm the surgical site. Attention was directed to the right eye where a paracentesis was created at the 11:30 position at the corneal limbus with a 15 degree blade. The anterior chamber was filled with 0.3 mL of 1% methylparaben free lidocaine and after 30 seconds the anterior chamber was filled with viscoelastic material. A 3 plane corneal incision was then made at the 9 o'clock position at the cornea limbus with a keratome. Despite use of dilating drops, intracameral lidocaine with phenylephrine and viscoelastic material, the pupil remained dilated only about 4 mm in diameter. I chose tomuse a Malyugin ring to expsnd the pupil and stabilize if for better visualization of the lens. A continuous curvilinear capsulorrhexis was then made in the anterior capsule of the lens with a cystotome. The lens was hydrodissected using balanced saline solution. The lens nucleus was then removed by phacoemulsification using the stop and chop technique. CDE [16.32]. The remaining cortical material was then removed from the posterior capsular bag using irrigation and aspiration. The posterior capsule bag was filled with viscoelastic material and a lens implant was inserted into the posterior capsule bag. I have chosen for this case is a one piece acrylic lens from [employer] model [[id number]], serial number [[id number]], lens power [20.0]. The lens was removed from its package, inspected and found to be free of defects it was loaded into a [place] food and nutrition services supervisor. The food and nutrition services supervisor was passed through the temporal wound and the lens was advanced into the posterior capsular bag. The lens implant was centered in the posterior capsular bag with the [place] spatula. The Malyugin ring was disengaged from the iris and removed from the anterior chamber with its food and nutrition services supervisor. The viscoelastic material was removed from the eye using irrigation and aspiration. The wounds were closed by stromal hydration and they were tested with the Weck-Trang sponges and found to have no leaks. Intraocular pressure was assessed by manual palpitation found to be with in the physiologic range. The drape and speculum were removed. Drops of Durezol, Combigan and gatifloxacin were instilled in the right eye. The patient was then taken to the recovery room in good condition. The patient tolerated the procedure very well. The patient was given a prescription for gatifloxacin, Durezol and Ilervo to use every 2 hours while awake today. He will return my clinic tomorrow for follow-up evaluation.
== END 2020-07-14 14:30 | disposition home or self-care (01) ==
LOC: SC 11:13
PROVIDERS: ATTEND Ophthalmology
DX: H25.811 Combined forms of age-related cataract, right eye (principal); H21.81 Floppy iris syndrome; T44.6X5A Adverse effect of alpha-adrenoreceptor antagonists, initial encounter; Y92.9 Unspecified place or not applicable; I10 Essential (primary) hypertension; Z85.46 Personal history of malignant neoplasm of prostate; F43.10 Post-traumatic stress disorder, unspecified; K58.9 Irritable bowel syndrome, unspecified; Z79.899 Other long term (current) drug therapy; F17.210 Nicotine dependence, cigarettes, uncomplicated; K21.9 Gastro-esophageal reflux disease without esophagitis
CPT/HCPCS: 00142; 66984; V2632; J2250; J3490 ×5; A9270; J0171; J3010; J2405; 142